=== PATIENT | female | born 1950 | race Caucasian/White ===

== ENCOUNTER 2016-09-24 03:44 | Emergency (ER) | payer MEDICAID ==
[~2016-09-24] VITALS: Ht 160 cm; Wt 70.3 kg
[~2016-09-24 03:44] MED LIST: ALEN70TA3 PO; ALLA266C2 TP; ATOR40TA PO; CLON2TAB PO; CRAN500C5 PO; DEXT1CAP3 PO; DIPH12.533 PO; DIPH50CA4 PO; DOCU250C75 PO; ENOX40DI SQ; ESOM40CA PO; FOLI1TAB16 PO; HYDR-552 PO; LEVE10002 PO; LEVO137T24 PO; LIDO30AD10 TP; LORA2TAB95 PO; OSCAL PO; OXYB5TAB11 PO; PHEN100C4 PO; SERT50TA PO; TEMA15CA5 PO
[2016-09-24 03:45] VITALS: BP 146/105
[2016-09-24] MEDS ORDERED: LORAZEPAM INJ 2 MG/ML VIAL IM ONE (04:00)
[2016-09-24] MEDS ORDERED: LORAZEPAM INJ 2 MG/ML VIAL ONE (04:11)
== END 2016-09-24 05:27 | disposition home or self-care (01) ==
LOC: ER 03:45
DX: F41.9 Anxiety disorder, unspecified (principal); K21.9 Gastro-esophageal reflux disease without esophagitis; F32.9 Major depressive disorder, single episode, unspecified; E03.9 Hypothyroidism, unspecified; M81.0 Age-related osteoporosis without current pathological fracture; Z98.890 Other specified postprocedural states
CPT/HCPCS: 96372; 99284; A4606; J2060; Z7610

== ENCOUNTER 2017-03-21 20:57 | Inpatient (IN) | payer MEDICAID ==
[~2017-03-21] VITALS: Ht 172.7 cm; Wt 65.8 kg
[~2017-03-21 20:57] MED LIST changes: +LEVE1000 PO; -LEVE10002 PO
--- NOTE | 2017-03-21 21:00 | NUR ---
PT BIB [facility] S/P WITNESSED SYNCOPE AT FACILITY. PT REPORTS DIZZINESS PRIOR TO FALL. NO NEURO DEFICITS. NO VISIBLE TRAUMA NOTED. RESP EVEN UNLABORED. SKIN WARM NONDIAPHORETIC. PT IS VERY UNCOOPERATIVE AND SWEARING AT STAFF. IN ER BED 09.
[2017-03-21] MEDS ORDERED: IV SET PRIMARY 1 EA INFUS.SET MC ONE ×2 (21:13→22:55)
[2017-03-21] MEDS ORDERED: IV NS 0.9% 1,000 ML ONE ×2 (21:13→22:55)
[2017-03-21 21:20] LABS: BASOPHILS # (AUTO) 0.1 /CMM (0.0-0.2); EOSINOPHILS # (AUTO) 0.2 /CMM (0.0-0.7); EOSINOPHILS % (AUTO) 1.8 % (0.0-6.0); HEMATOCRIT 38 % (33-45); HEMOGLOBIN 12.8 g/dL (11.5-14.8); LYMPHOCYTES # (AUTO) 3.6 /CMM (0.8-4.8); LYMPHOCYTES % (AUTO) 41.8 % (20.0-44.0); MEAN CORPUSCULAR HEMOGLOBIN 32 PG (26.0-33.0); MEAN CORPUSCULAR HGB CONC 34 g/dl (31.0-36.0); MEAN CORPUSCULAR VOLUME 95 fL (82-100); MONOCYTES # (AUTO) 0.6 /CMM (0.1-1.30); MONOCYTES % (AUTO) 7.1 % (2.0-12.0); NEUTROPHILS # (AUTO) 4.1 /CMM (1.8-8.9); NEUTROPHILS % (AUTO) 48.3 % (43.0-81.0); PLATELET COUNT (AUTO) 186 /CMM (150-450); RDW COEFFICIENT OF VARIATION 13.3 (11.5-15.0); WHITE BLOOD COUNT (AUTO) 8.6 K/uL (4.3-11.0)
[2017-03-21 21:28] LABS: CARBON DIOXIDE 26 mmol/L (21-32); CHLORIDE 106 mmol/L (98-107); CREATININE 1.1 mg/dL (0.6-1.3); GLUCOSE 110 mg/dL (74-106); POTASSIUM 3.9 mmol/L (3.5-5.1); SODIUM SERUM 139 mmol/L (136-145); UREA NITROGEN, BLOOD 24 mg/dL (7-18)
[2017-03-21 21:30] LABS: INR 0.97 (0.87-1.13); PROTHROMBIN TIME 10.1 SECS (9.5-12.7)
[2017-03-21] MEDS ORDERED: IV NS 0.9% 1,000 ML BAG IV ONE ×2 (21:30→23:00)
--- NOTE | 2017-03-21 21:33 | NUR ---
TRANSPORTED TO CT IN STABLE CONDITION
[2017-03-21 21:34] LABS: ALANINE AMINOTRANSFERASE 24 U/L (12-78); ALBUMIN 3.5 g/dL (3.4-5.0); ALKALINE PHOSPHATASE 136 U/L (46-116); ASPARTATE AMINOTRANSFERASE 25 U/L (15-37); BILIRUBIN,DIRECT 0.1 mg/dL (0.0-0.2); BILIRUBIN,TOTAL 0.2 mg/dL (0.2-1.0); TOTAL PROTEIN, SERUM 6.9 g/dL (6.4-8.2)
[2017-03-21 21:36] LABS: TROPONIN I < 0.017 ng/mL (0.00-0.056)
--- NOTE | 2017-03-21 22:07 | NUR ---
PT REFUSING TO PROVIDE URINE SAMPLE. DR LY NOTIFIED.
--- NOTE | 2017-03-21 22:35 | NUR ---
REPORT GIVEN TO KARTHIKEYAN VALLE FOR ADMISSION
[2017-03-21] MEDS ORDERED: diphenhydrAMINE HCL 50 MG CAPSULE PO PRN (23:00)
[2017-03-21] MEDS ORDERED: Z GUARD REMEDY 2 OZ OINT TP PRN (23:00)
--- NOTE | 2017-03-21 23:01 | NUR ---
PT NOTED TO HAVE BECOME HYPOTENSIVE AGAIN. O2 SAT 92-94% ON ROOM AIR. ORDER OBTAINED BY DR JARRETT FOR 1L NS BOLUS. O2 2L VIA NC INITIATED. IMMEDIATE INCREASE TO 98% O2.
[2017-03-21 23:25] VITALS: BP 97/60
--- NOTE | 2017-03-21 23:25 | NUR ---
MOBILE APPLICATION ENGINEER INITIAL NOTES PT ARRIVED TO THE FLOOR VIA [facility], STATED THAT SHE WAS UNABLE TO AMBULATE AND REQUESTED A TRANSFER FROM [facility] TO [facility]. NO SOB OR SIGNS OF DISTRESS. PT HAS A RAC #18 WITH NS RUNNING AT GRAVITY. BP IS 97/60 AND WILL CONTINUE TO MONITOR. PT IS UNCOOPERATIVE AND REFUSES CARE. BED IS IN LOW AND LOCKED POSITION. CALL LIGHT WITHIN REACH
--- NOTE | 2017-03-21 23:29 | NUR ---
PT TRANSPORTED TO [facility] IN STABLE CONDITION VIA ACLS PROTOCOL. BP WNL NOW AND IVF BOLUS INFUSING.
[2017-03-22] VITALS (8 sets, daily range): BP systolic 97–112; BP diastolic 57–73
[2017-03-22] MEDS ORDERED: ACETAMINOPHEN 325 MG TABLET PO PRN
[2017-03-22] MEDS ORDERED: Z GUARD REMEDY 2 OZ OINT TP PRN
[2017-03-22] MEDS ORDERED: ONDANSETRON HCL/PF 4 MG/2 ML VIAL IVP PRN
[2017-03-22] MEDS ORDERED: IV SET PRIMARY PUMP SET 1 EA INFUS.SET MC ONE (00:14)
--- NOTE | 2017-03-22 01:00 | NUR ---
BP NOTES BP IS NOW 87/49. DR FLETCHER WAS NOTIFIED, ORDER FOR 1L BOLUS WAS GIVEN. WILL ADMINISTER BOLUS AND CONTINUE TO MONITOR BP
[2017-03-22] MEDS: IV NS 0.9% 1,000 ML IV PRN ×3 (01:10→13:50)
[2017-03-22] MEDS ORDERED: IV NS 0.9% 1,000 ML IV ONE (01:30)
[2017-03-22] MEDS ORDERED: IV NS 0.9% 1,000 ML ONE (02:48)
--- NOTE | 2017-03-22 02:50 | NUR ---
BP NOTES AFTER THE LITER BOLUS BP IS 84/48. CONTACTED DR FLETCHER, HE SAID TO CONTINUE WITH IV FLUIDS AND INCREASE RATE TO 100 CC/HR AND NOT TO CALL BACK UNLESS BP DROPS BELOW 70. PT HAS BEEN PLACED IN A MODIFIED [place]. WILL CONTINUE TO MONITOR PT
[2017-03-22 04:08] LABS: BASOPHILS % (AUTO) 0.3 % (0.0-2.0); EOSINOPHILS # (AUTO) 0.1 /CMM (0.0-0.7); EOSINOPHILS % (AUTO) 1.3 % (0.0-6.0); HEMATOCRIT 33 % (33-45); HEMOGLOBIN 10.9 g/dL (11.5-14.8); LYMPHOCYTES # (AUTO) 2.3 /CMM (0.8-4.8); LYMPHOCYTES % (AUTO) 34.4 % (20.0-44.0); MEAN CORPUSCULAR HEMOGLOBIN 32 PG (26.0-33.0); MEAN CORPUSCULAR HGB CONC 33 g/dl (31.0-36.0); MEAN CORPUSCULAR VOLUME 96 fL (82-100); MONOCYTES # (AUTO) 0.4 /CMM (0.1-1.30); MONOCYTES % (AUTO) 5.7 % (2.0-12.0); NEUTROPHILS % (AUTO) 58.3 % (43.0-81.0); PLATELET COUNT (AUTO) 147 /CMM (150-450); RDW COEFFICIENT OF VARIATION 14.3 (11.5-15.0); RED BLOOD CELL COUNT(AUTO) 3.38 MIL/uL (4.0-5.2); WHITE BLOOD COUNT (AUTO) 6.8 K/uL (4.3-11.0)
[2017-03-22 04:21] LABS: PHENYTOIN (DILANTIN) 16.3 ug/ml (10.0-20.0)
[2017-03-22 04:27] LABS: ALBUMIN 2.4 g/dL (3.4-5.0); BILIRUBIN,TOTAL 0.1 mg/dL (0.2-1.0); CALCIUM, SERUM 7.6 mg/dL (8.5-10.1); CREATININE 0.7 mg/dL (0.6-1.3); MAGNESIUM 1.9 mg/dL (1.8-2.4); PHOSPHORUS 3.8 mg/dL (2.5-4.9); POTASSIUM 3.9 mmol/L (3.5-5.1); TOTAL PROTEIN, SERUM 5.4 g/dL (6.4-8.2)
[2017-03-22 04:39] LABS: THYROID STIMULATING HORMONE 0.065 uIU/mL (0.358-3.74)
--- NOTE | 2017-03-22 06:44 | NUR ---
SHERIFF'S DETECTIVE CLOSING NOTES PT IS AWAKE IN BED. NO SIGNS OF SOB. BP HAS IMPROVED. IV ACCESS ON RAC #18 WITH NS RUNNING AT 100 ML/ HR. BED IS IN LOW AND LOCKED POSITION, CALL LIGHT IS WITHIN REACH. WILL ENDORSE TO DAY SHIFT.
--- NOTE | 2017-03-22 07:25 | NUR ---
RN OPEN NOTES RECEIVED REPORT FROM CREATIVE TECHNOLOGIST NURSE. PATIENT IS IN BED, ALERT AND ORIENTED TO NAME, PLACE AND TIME. PATIENT IS ANXIOUS, CRYING, AND PAIN LEVEL 10/10 ON HER BACK. PAIN MED WAS NOT GIVEN DUE TO LOW BLOOD PRESSURE, DR FLETCHER MADE AWARE DURING THE NIGHT AND BOLUS WAS GIVEN. WILL MONITOR AND ASSESS PATIENT THROUGH OUT MY SHIFT.
[2017-03-22] MEDS ORDERED: LEVOTHYROXINE SODIUM 137 MCG TABLET PO SCH (07:30)
--- NOTE | 2017-03-22 08:00 | NUR ---
MANUAL BLOOD PRESSURE CHECKED/ 110/64 LAYING DOWN. 105/68 SITTING UP. PATIENT IS UNABLE TO STAND
[2017-03-22] MEDS ORDERED: HYDROCODONE/APAP 5/325MG 1 EACH TABLET PO SCH (09:00)
--- NOTE | 2017-03-22 09:00 | NUR ---
DR PEARCE AT BEDSIDE. TORADOL IV ORDERED AND ADMINISTERED.
[2017-03-22] MEDS: LEVOTHYROXINE SODIUM 88 MCG TABLET PO SCH (09:22)
[2017-03-22] MEDS: LEVOTHYROXINE SODIUM 100 MCG TABLET PO SCH (09:22)
[2017-03-22] MEDS: PANTOPRAZOLE 40 MG TABLET.DR PO SCH (09:22)
[2017-03-22] MEDS: FOLIC ACID 1 MG TABLET PO SCH (09:25)
[2017-03-22] MEDS: LEVETIRACETAM SOL (5 ML) 100 MG/ML UDC PO SCH ×2 (09:25→20:38)
[2017-03-22] MEDS: PHENYTOIN SUSP UDC 100 MG/4 ML UDC PO SCH ×2 (09:25→17:09)
[2017-03-22] MEDS: SERTRALINE HCL 50 MG TABLET PO SCH (09:26)
[2017-03-22] MEDS: DOCUSATE SODIUM 250 MG CAPSULE PO SCH (09:26)
[2017-03-22] MEDS: OXYBUTYNIN CHLORIDE 5 MG TABLET PO SCH ×3 (09:27→17:09)
[2017-03-22] MEDS ORDERED: KETOROLAC TROMETHAMINE INJ 30 MG/ML VIAL IV ONE (09:30)
[2017-03-22] MEDS: ENOXAPARIN SODIUM 40 MG/0.4 ML DISP.SYRIN SQ SCH (09:38)
[2017-03-22] MEDS: LIDOCAINE 5% (PATCH) 1 EA PATCH TP SCH (09:57)
--- NOTE | 2017-03-22 10:15 | NUR ---
RADIOLOGY AT BEDSIDE TO TAKE PATIENT DOWN TO CT. PATIENT IS ANXIOUS. KLONOPIN ADMINISTERED. CT PENDING TILL PATIENT IS LESS ANXIOUS
[2017-03-22] MEDS: clonazePAM 1 MG TABLET PO PRN (10:18)
[2017-03-22] MEDS ORDERED: MORPHINE SULFATE INJ 2 MG/ML DISP.SYRIN IVP ONE (12:30)
[2017-03-22] MEDS: NAPROXEN 375 MG TABLET.DR PO SCH (17:09)
--- NOTE | 2017-03-22 18:40 | NUR ---
RN CLOSING NOTES PATIENT IS IN BED. ALERT AND ORIENTED TO NAME, TIME AND LOCATION. PATIENT IS ANXIOUS BUT CORPORATIVE. NO SIGNS AND SYMPTOMS OF DISTRESS. BED IN LOW POSITION, LOCKED AND TWO SIDE RAILS ARE UP. IV SITE IS INTACT AND PATENT. CURRENTLY RUNNING NS AT 100ML/HR. CT THORACIC AND LUMBAR SPINE COMPLETED EARLIER TODAY. ECHO COMPLETED, EF AT 60%. CAROTID DUPLEX COULDN'T BE COMPLETED DUE TO PATIENT UNABLE TO RELAX. PT EVALUATION WASN'T DONE TODAY DUE TO PATIENT UNABLE TO TOLERATE MOVEMENT DUE TO BACK PAIN. ALL NEEDS ANTICIPATED. PATIENT KEPT CLEAN AND DRY. WILL ENDORSE TO 1ST PRESSMAN ON WEB PRESS NURSE
--- NOTE | 2017-03-22 19:30 | NUR ---
CLIP AND HANGER ATTACHER NOTES RECEIVED PT IN BED, AWAKE, ALERT AND VERBALLY RESPONSIVE TO STIMULI. COMPLAINT OF BACK PAIN 04/27. OFFERED TYLENOL WHILE AWAITING FOR THE DRDxion TO CALL BACK PT. REFUSED. ON ROOM AIR TOLERATING WELL. NO SOB NOTED. PT NOTED CRYING AND ANXIOUS. RFA IV ACCESS NOTED, INTACT AND PATENT WITH IVF INFUSING WELL AT 100CC/HR. SAFETY MEASURES MAINTAINED. ALL NEEDS ATTENDED. WILL CONT. TO MONITOR.
[2017-03-22 20:05] LABS: APPEARANCE,URINE TURBID (CLEAR); BILIRUBIN,URINE NEGATIVE (NEGATIVE); BLOOD, URINE NEGATIVE Ery/uL (NEGATIVE); COLOR,URINE YELLOW (YELLOW); KETONES,URINE NEGATIVE (NEGATIVE); LEUKOCYTE ESTERASE ,URINE TRACE (NEGATIVE); NITRITE, URINE POSITIVE (NEGATIVE); PH,URINE 5.5 (5.0-8.0); PROTEIN,URINE NEGATIVE (NEGATIVE); UGLUCOSE NEGATIVE (NEGATIVE); UROBILINOGEN,URINE 0.2 EU/dL (0.2)
[2017-03-22 20:15] LABS: BACTERIA,URINE Many /HPF (None Seen); RBC,URINE 0-2 /HPF (0-2); SQUAMOUS EPITHELIAL CELL,UR Few /HPF (None Seen)
--- NOTE | 2017-03-22 21:50 | NUR ---
CORPORATE ETHICS OFFICER NOTES PT. COMPLAINTS OF SEVERE PAIN -04/27. PAGED AND SPOKE WITH DR. FLETCHER AND GAVE AN ORDER FOR NORCO 5/325MG PO Q4H. NOTED AND CARRIED OUT.
[2017-03-22] MEDS: LEVOFLOXACIN (500MG) 500 MG TABLET PO SCH (21:51)
[2017-03-22] MEDS: ATORVASTATIN 40 MG TABLET PO SCH (21:53)
--- NOTE | 2017-03-22 22:00 | NUR ---
LENS COATING TECHNICIAN NOTES PT CRYING AND STATING SHE HAS SEVERE BACK PAIN. GABRIEL OFFERED AND STATED SHE DOESN'T WANT AT THIS TIME. OFFERED TO REPOSITION . PT REFUSED TO BE TOUCH AT THIS TIME. EDUCATED PT ABOUT PAIN MANAGEMENT AND RELAXATION TECHNIQUE . PT NEEDS REINFORCEMENT.
[2017-03-22] MEDS: TEMAZEPAM 15 MG CAPSULE PO SCH (23:09)
[2017-03-23] MEDS ORDERED: HYDROCODONE/APAP 5/325MG 1 EACH TABLET ONE ×2 (00:07→05:54)
[2017-03-23 00:08] VITALS: BP 121/73
[2017-03-23] MEDS: HYDROCODONE/APAP 5/325MG 1 EACH TABLET PO PRN ×5 (00:18→22:06)
--- NOTE | 2017-03-23 00:18 | NUR ---
BOX TRUCK OWNER OPERATOR NOTES NORCO 5/325MG GIVEN ORDERED. WILL CONTINUE TO REASSESS.
[2017-03-23] MEDS: IV NS 0.9% 1,000 ML IV PRN ×2 (01:03→14:58)
[2017-03-23] MEDS: clonazePAM 1 MG TABLET PO PRN ×2 (03:36→11:06)
--- NOTE | 2017-03-23 03:36 | NUR ---
CURRICULUM ASSISTANT NOTES PT IS NOTED, CRYING, ANXIOUS AND SCREAMING. KLONOPIN 2MG GIVEN ORDERED. WILL CONTINUE TO REASSESS PT.
--- NOTE | 2017-03-23 06:04 | NUR ---
DIGITAL MARKETING STRATEGIST NOTES PT COMPLAINT OF SEVERE PAIN AT HER BACK 03/27. NORCO 1 TAB GIVEN ORDERED.
--- NOTE | 2017-03-23 06:21 | NUR ---
NEGATIVE CHECKER NOTES NOTIFIED DR. DANGELO FLETCHER REGARDING PT. NEW HEART RHYTHM FROM SB TO 1ST DEGREE AV BLOCK. PT ASYMPTOMATIC. NO COMPLAINT OF CHEST PAIN. NO SOB NOTED. VS ARE WNL. WILL CONTINUE TO MONITOR.
[2017-03-23] MEDS: LEVOTHYROXINE SODIUM 100 MCG TABLET PO SCH (06:38)
[2017-03-23] MEDS: PANTOPRAZOLE 40 MG TABLET.DR PO SCH (06:38)
[2017-03-23] MEDS: LEVOTHYROXINE SODIUM 88 MCG TABLET PO SCH (06:38)
--- NOTE | 2017-03-23 06:56 | NUR ---
SPIRAL GEAR GENERATOR NOTES EKG DONE WITH A READING OF SINUS TALI
--- NOTE | 2017-03-23 07:10 | NUR ---
BLUEPRINT DEVELOPER OPENING NOTES RECEIVED PT. FROM NIGHTSHIFT NURSE IN STABLE CONDITION. PT. IS A/O X4. NO SOB OR SIGNS OF DISTRESS NOTED. BREATHING IS EVEN AND UNLABORED. ON 2L 02 VIA NC. PT. IS SATING WELL AT 96%. PT. DENIES ANY DIZZINESS OR PAIN AT THIS TIME. ON TELEMETRY WITH SINUS TALI ON THE MONITOR AND A HR OF 47. IV PRESENT ON LEFT FA 18G PATENT AND INTACT INFUSING NS @ 100 CC/HR. PT. IS TOLERATING INFUSION WELL. NO REDNESS OF SIGNS OF INFILTRATION TO IV SITE. BED IN LOW LOCKED POSITION, SIDE RAILS UP X2, CALL LIGHT WITHIN REACH. WILL CONTINUE TO MONITOR.
[2017-03-23 08:00] VITALS: BP 110/57
[2017-03-23] MEDS: SERTRALINE HCL 50 MG TABLET PO SCH (08:34)
[2017-03-23] MEDS: NAPROXEN 375 MG TABLET.DR PO SCH ×2 (08:35→17:02)
[2017-03-23] MEDS: DOCUSATE SODIUM 250 MG CAPSULE PO SCH (08:36)
[2017-03-23] MEDS: OXYBUTYNIN CHLORIDE 5 MG TABLET PO SCH ×3 (08:36→17:02)
[2017-03-23] MEDS: PHENYTOIN SUSP UDC 100 MG/4 ML UDC PO SCH ×2 (08:36→17:01)
[2017-03-23] MEDS: FOLIC ACID 1 MG TABLET PO SCH (08:36)
[2017-03-23] MEDS: LIDOCAINE 5% (PATCH) 1 EA PATCH TP SCH (08:37)
[2017-03-23] MEDS: LEVETIRACETAM SOL (5 ML) 100 MG/ML UDC PO SCH ×2 (08:44→21:27)
[2017-03-23] MEDS: ENOXAPARIN SODIUM 40 MG/0.4 ML DISP.SYRIN SQ SCH (08:45)
--- NOTE | 2017-03-23 11:20 | NUR ---
NIGHT CLEANER NOTES PT. TAKEN DOWN FOR MRI
--- NOTE | 2017-03-23 12:31 | NUR ---
CORPORATE PLANNING MANAGER NOTES PT. WAS BROUGHT BACK TO THE UNIT FROM MRI. WILL AWAIT MRI RESULTS
[2017-03-23 16:00] VITALS: BP 136/76
--- NOTE | 2017-03-23 18:52 | NUR ---
HAT MEASURER CLOSING NOTES PT. REMAINS IN STABLE CONDITION. ALL NEEDS WERE MET DURING SHIFT AND ORDERS CARRIED OUT ACCORDINGLY. NO ACUTE CHANGES IN CONDITION DURING SHIFT. PT. REMAINS SINUS TALI ON THE TELE MONITOR WITH A HR OF 57. ALL SAFETY MEASURES IN PLACE. WILL ENDORSE TO NIGHTSHIFT NURSE FOR PHAN
--- NOTE | 2017-03-23 19:30 | NUR ---
TELE/RN RECEIVE PATIENT AWAKE, ALERT, ORIENTED, CALM AND COMFORTABLE, NO C/O PAIN, NO DISTRESS NOTED, FALL PRECAUTION, INSTRUCTED TO CALL FOR ANY ASSISTANCE, VERBALIZED UNDERSTANDING. WILL MONITOR.
[2017-03-23 20:00] VITALS: BP 113/63
[2017-03-23] MEDS: LEVOFLOXACIN (500MG) 500 MG TABLET PO SCH (21:27)
[2017-03-23] MEDS: ATORVASTATIN 40 MG TABLET PO SCH (21:27)
[2017-03-23] MEDS: TEMAZEPAM 15 MG CAPSULE PO SCH (22:54)
[2017-03-24 00:37] VITALS: BP 117/71
[2017-03-24 04:43] VITALS: BP 115/75
[2017-03-24] MEDS: HYDROCODONE/APAP 5/325MG 1 EACH TABLET PO PRN ×2 (05:37→10:20)
--- NOTE | 2017-03-24 05:40 | NUR ---
TELE/RN AWAKE, C/O BACK PAIN, 06/27 NORCO 1 TABLET PO GIVEN ORDERED. PER PATIENT SHE HAD AN ON AND OFF SLEEP THE WHOLE NIGHT DUE TO FREQUENT DIAPER CHANGE. ALL NEEDS ATTENDED AT THIS TIME WILL CONTINUE TO MONITOR.
[2017-03-24 06:42] LABS: CALCIUM, SERUM 8.3 mg/dL (8.5-10.1); CREATININE 0.7 mg/dL (0.6-1.3); POTASSIUM 4.3 mmol/L (3.5-5.1)
[2017-03-24 06:48] VITALS: BP 112/64
--- NOTE | 2017-03-24 07:10 | NUR ---
AUTOMOTIVE INTERNET SALES MANAGER OPENING NOTES RECEIVED PT. FROM NIGHTSHIFT NURSE IN STABLE CONDITION. PT. IS A/O X4. NO SOB OR SIGNS OF DISTRESS NOTED. BREATHING IS EVEN AND UNLABORED. ON 2L 02 VIA NC. ON TELEMETRY WITH SINUS TALI ON THE MONITOR AND A HR OF 47. IV PRESENT ON LEFT FA 22G PATENT AND INTACT INFUSING NS @ 75 CC/HR. PT. IS TOLERATING INFUSION WELL. NO REDNESS OF SIGNS OF INFILTRATION TO IV SITE. BED IN LOW LOCKED POSITION, SIDE RAILS UP X2, CALL LIGHT WITHIN REACH. WILL CONTINUE TO MONITOR.
[2017-03-24 08:00] VITALS: BP 112/64
[2017-03-24] MEDS: PHENYTOIN SUSP UDC 100 MG/4 ML UDC PO SCH (08:17)
[2017-03-24] MEDS: LIDOCAINE 5% (PATCH) 1 EA PATCH TP SCH (08:17)
[2017-03-24] MEDS: LEVOTHYROXINE SODIUM 88 MCG TABLET PO SCH (08:18)
[2017-03-24] MEDS: PANTOPRAZOLE 40 MG TABLET.DR PO SCH (08:18)
[2017-03-24] MEDS: DOCUSATE SODIUM 250 MG CAPSULE PO SCH (08:18)
[2017-03-24] MEDS: LEVOTHYROXINE SODIUM 100 MCG TABLET PO SCH (08:18)
[2017-03-24] MEDS: LEVETIRACETAM SOL (5 ML) 100 MG/ML UDC PO SCH (08:18)
[2017-03-24] MEDS: OXYBUTYNIN CHLORIDE 5 MG TABLET PO SCH (08:18)
[2017-03-24] MEDS: SERTRALINE HCL 50 MG TABLET PO SCH (08:19)
[2017-03-24] MEDS: NAPROXEN 375 MG TABLET.DR PO SCH (08:20)
[2017-03-24] MEDS: FOLIC ACID 1 MG TABLET PO SCH (08:20)
[2017-03-24] MEDS: ENOXAPARIN SODIUM 40 MG/0.4 ML DISP.SYRIN SQ SCH (08:21)
--- NOTE | 2017-03-24 12:03 | NUR ---
MS RN CLOSING NOTES PT. WAS DISCHARGED FROM THE UNIT IN STABLE CONDITION. rEPORT WAS GIVEN TO MARKOS RILEY OIL RIG ROUGHNECK AT [facility] ASSISTED [facility]. PT. LEFT IA AMBULANCE TRANSPORT AND WAS SAFELY TRANSFERRED FROM HOSPITAL BED TO THE [facility]. ALL NEEDS WERE MET DURING SHIFT AND ORDERS CARRIED OUT ACCORDINGLY.
== END 2017-03-24 12:05 | DRG 48 ==
LOC: ER 20:58 → TELE 22:31 → MED 03-24 10:07
PROVIDERS: ADMIT Nurse Practitioner Acute Care; ATTEND Nurse Practitioner Acute Care
DX: G90.8 Other disorders of autonomic nervous system (principal); N17.0 Acute kidney failure with tubular necrosis; F32.3 Major depressive disorder, single episode, severe with psychotic features; I95.9 Hypotension, unspecified; E88.09 Other disorders of plasma-protein metabolism, not elsewhere classified; N32.81 Overactive bladder; M19.90 Unspecified osteoarthritis, unspecified site; E03.9 Hypothyroidism, unspecified; G40.909 Epilepsy, unspecified, not intractable, without status epilepticus; G47.00 Insomnia, unspecified; K21.9 Gastro-esophageal reflux disease without esophagitis; G89.4 Chronic pain syndrome; E86.0 Dehydration; F41.9 Anxiety disorder, unspecified; M81.0 Age-related osteoporosis without current pathological fracture; Z98.890 Other specified postprocedural states; Z91.81 History of falling
CPT/HCPCS: 36415; 70450-TC; 71010-TC; 72128-TC; 72131-TC; 72146-TC; 80048-TC; 80053-TC; 80061-TC; 80076-TC; 80185-TC; 81000-TC; 83735-TC; 84100-TC; 84439-TC; 84443-TC; 84480; 84484-TC; 85025-TC; 85730-TC; 87081-TC; 87086-TC; 87186-TC; 93307-TC; 94799-TC; A4606; J1650; J1885; J1953; J2270; J2405; J7030; Q0163; Z7610

== ENCOUNTER 2017-06-17 04:42 | Inpatient (IN) | payer OTHER, MEDICARE ==
[~2017-06-17] VITALS: Ht 167.6 cm; Wt 61.7 kg
[~2017-06-17 04:42] MED LIST changes: -ALEN70TA3 PO; -ALLA266C2 TP; +CALC500T13 PO; -CLON2TAB PO; -CRAN500C5 PO; -DIPH12.533 PO; +DIPH25CA6 PO; -DIPH50CA4 PO; -ENOX40DI SQ; +ERGO50003 PO; -FOLI1TAB16 PO; +GUAI100S4 PO; +HYDR-3326 PO; +IBUP-1482 PO; +LORA1TAB PO; -LORA2TAB95 PO; +MAGN400O6 PO; -OSCAL PO
--- NOTE | 2017-06-17 04:50 | NUR ---
TO BED 5 A 67 YO FEMALE PATIENT BIBRA 860 FROM 4 SEASONS FOR UNWITNESSED GLF X 30 MINS LARD TUB WASHER. PATIENT COMPLAINING OF GENERALIZED BODY PAIN. NOTED WITH ANXIETY. VSS. NAD NOTED. NONDIAPHORETIC. GOWNED. SAFETY AND COMFORT MEASURES RENDERED.
[2017-06-17] MEDS ORDERED: LORAZEPAM INJ 2 MG/ML VIAL ONE (04:59)
[2017-06-17] MEDS ORDERED: LORAZEPAM INJ 2 MG/ML VIAL IV ONE (05:00)
--- NOTE | 2017-06-17 05:05 | NUR ---
started a saline lock on the right hand g20, blood drawn and sent to lab.
[2017-06-17 05:11] LABS: BASOPHILS # (AUTO) 0.1 /CMM (0.0-0.2); BASOPHILS % (AUTO) 0.8 % (0.0-2.0); EOSINOPHILS # (AUTO) 0.3 /CMM (0.0-0.7); EOSINOPHILS % (AUTO) 4.4 % (0.0-6.0); HEMATOCRIT 44 % (33-45); HEMOGLOBIN 14.4 g/dL (11.5-14.8); LYMPHOCYTES # (AUTO) 2.6 /CMM (0.8-4.8); LYMPHOCYTES % (AUTO) 37.3 % (20.0-44.0); MEAN CORPUSCULAR HEMOGLOBIN 32 PG (26.0-33.0); MEAN CORPUSCULAR HGB CONC 33 g/dl (31.0-36.0); MEAN CORPUSCULAR VOLUME 97 fL (82-100); MONOCYTES # (AUTO) 0.6 /CMM (0.1-1.30); MONOCYTES % (AUTO) 9.2 % (2.0-12.0); NEUTROPHILS # (AUTO) 3.4 /CMM (1.8-8.9); NEUTROPHILS % (AUTO) 48.3 % (43.0-81.0); PLATELET COUNT (AUTO) 205 /CMM (150-450); RDW COEFFICIENT OF VARIATION 13.5 (11.5-15.0); RED BLOOD CELL COUNT(AUTO) 4.51 MIL/uL (4.0-5.2)
[2017-06-17 05:21] LABS: CALCIUM, SERUM 9.4 mg/dL (8.5-10.1); CREATININE 0.8 mg/dL (0.6-1.3); POTASSIUM 4.4 mmol/L (3.5-5.1)
[2017-06-17 05:24] LABS: INR 0.95 (0.87-1.13); PROTHROMBIN TIME 9.9 SECS (9.5-12.7)
--- NOTE | 2017-06-17 05:27 | NUR ---
patient to ct.
[2017-06-17] MEDS ORDERED: QUET25TA PO (05:36)
[2017-06-17] MEDS ORDERED: HYDROCODONE/APAP 10/325MG 1 EA TABLET ONE (05:51)
[2017-06-17] MEDS ORDERED: ONDANSETRON HCL/PF 4 MG/2 ML VIAL ONE (05:51)
[2017-06-17] MEDS ORDERED: HYDROCODONE/APAP 10/325MG 1 EA TABLET PO ONE (06:00)
[2017-06-17] MEDS ORDERED: ONDANSETRON HCL/PF - ER 4 MG/2 ML VIAL IV ONE (06:00)
[2017-06-17] MEDS ORDERED: PHEN50TA PO (07:34)
--- NOTE | 2017-06-17 07:53 | NUR ---
PAGED DR SANON FOR ADMISSION
--- NOTE | 2017-06-17 08:09 | NUR ---
REPORT GIVEN TO LISANDRA MS [phone].
[2017-06-17 09:30] VITALS: BP 93/56
[2017-06-17] MEDS ORDERED: SERTRALINE HCL 50 MG TABLET PO SCH (10:30)
[2017-06-17] MEDS ORDERED: HYDROCODONE/APAP 5/325MG 1 EACH TABLET PO PRN (10:30)
[2017-06-17] MEDS ORDERED: PHEN100C4 PO (10:30)
[2017-06-17] MEDS ORDERED: LEVOTHYROXINE SODIUM 137 MCG TABLET PO SCH (10:30)
[2017-06-17] MEDS ORDERED: DOCUSATE SODIUM 250 MG CAPSULE PO SCH (10:30)
[2017-06-17] MEDS ORDERED: diphenhydrAMINE HCL 25 MG CAPSULE PO PRN (10:30)
[2017-06-17] MEDS ORDERED: MAGNESIUM HYDROXIDE 30 ML UDC PO PRN (10:30)
[2017-06-17] MEDS ORDERED: CALCIUM CARBONATE 500 MG TAB.CHEW PO PRN (10:30)
[2017-06-17] MEDS ORDERED: GUAIFENESIN 300 MG/15 ML UDC PO PRN (10:30)
[2017-06-17] MEDS ORDERED: LIDOCAINE 5% (PATCH) 1 EA PATCH TP SCH (10:58)
[2017-06-17] MEDS ORDERED: IBUPROFEN 200 MG TABLET PO PRN (11:00)
[2017-06-17 12:00] VITALS: BP 113/71
[2017-06-17] MEDS: oxyCODONE IR immediate release 5 MG CAPSULE PO SCH ×2 (12:29→16:54)
[2017-06-17] MEDS: QUETIAPINE FUMARATE 25 MG TABLET PO SCH ×2 (12:36→16:53)
[2017-06-17] MEDS: LORAZEPAM 1 MG TABLET PO SCH ×2 (12:38→16:53)
--- NOTE | 2017-06-17 18:11 | NUR ---
MS MANAGER CREATIVE NOTE PATIENT IS LEAVING THE FLOOR VIA GURNEY ACCOMPANIED BY THE AMBULANCE STAFF. IV CATETHER REMOVED WITH THE TIP INTACT. OCCLUSIVE DRESSING APPLIED. NO S/S OF INFECTION. PATIENT'S VS ARE WNL. PATIENT IS STABLE. REPORT IS GIVEN TO LYNN IN FOUR SEASONS.
[2017-06-17] MEDS ORDERED: PHENYTOIN EXTENDED RELEASE 100 MG CAPSULE PO SCH (21:00)
[2017-06-17] MEDS ORDERED: LEVETIRACETAM (250 MG) 250 MG TABLET PO SCH (21:00)
[2017-06-17] MEDS ORDERED: Medication Not On Formulary EA (Dextromethorphan Hbr/Quinidine (Nuedexta 20-10 Mg Capsul PO SCH (21:00)
[2017-06-17] MEDS ORDERED: ATORVASTATIN 40 MG TABLET PO SCH (22:00)
[2017-06-17] MEDS ORDERED: TEMAZEPAM 15 MG CAPSULE PO PRN (22:00)
[2017-06-18] MEDS ORDERED: PANTOPRAZOLE 40 MG TABLET.DR PO SCH (07:30)
[2017-06-19] MEDS ORDERED: ERGOCALCIFEROL (VITAMIN D 2) 50,000 UNIT CAPSULE PO SCH (10:30)
== END 2017-06-17 18:20 | DRG 384 ==
LOC: ER 04:43 → TELE 10:14
PROVIDERS: ADMIT Internal Medicine; ATTEND Internal Medicine
DX: S00.90XA Unspecified superficial injury of unspecified part of head, initial encounter (principal); F32.9 Major depressive disorder, single episode, unspecified; W01.0XXA Fall on same level from slipping, tripping and stumbling without subsequent striking against object, initial encounter; E03.9 Hypothyroidism, unspecified; E78.5 Hyperlipidemia, unspecified; F41.9 Anxiety disorder, unspecified; G40.909 Epilepsy, unspecified, not intractable, without status epilepticus; G89.29 Other chronic pain; K21.9 Gastro-esophageal reflux disease without esophagitis; M81.0 Age-related osteoporosis without current pathological fracture; Y93.9 Activity, unspecified; Y92.129 Unspecified place in nursing home as the place of occurrence of the external cause; R78.89 Finding of other specified substances, not normally found in blood
CPT/HCPCS: 36415; 70450-TC; 80048-TC; 80185-TC; 85025-TC; 85730-TC; A4606; J2060; J2405; Z7610